=== PATIENT | female | born 1940 | race Caucasian/White ===

== ENCOUNTER 2016-09-30 09:59 | Day surgery (SDC) | payer MEDICARE, OTHER ==
[~2016-09-30 09:59] MED LIST: ACET325T9 PO; ALBU0.63 NEB; ALEN70TA3 PO; ASCO500T2 PO; AZEL137S3 NS; BUPIVACAINE MPF 0.5% 30 ML VIAL. ONE; CALC1TAB70 PO; CELE200C PO; CETI10TA22 PO; CLINDAMYCIN 600MG PREMIX 50 ML IV ONE; CYCL1DRO EACHEYE; DEXAMETHASONE SOD PHOS 4 MG/ML VIAL ONE; DEXL60CA2 PO; DICL100G18 TP; DOCU-109 PO; FENT1PAT13 TP; FLUT16SP NS; FOLI1TAB16 PO; GABA-586 PO; GABA600T2 PO; GLUC1TAB26 PO; HYDR10TA2 PO; HYDROmorphone 2 MG/ML VIAL IV PRN; IRON1CAP10 PO; IV RINGERS,LACTATED 1000ML 1,000 ML IV SCH; LACT1CAP6 PO; LIDOCAINE 1% 1 ML SYRINGE. ID PRN; LIDOCAINE 1% 20 ML VIAL. ONE; LOPE2TAB27 PO; LORA10TA68 PO; LOSA50TA6 PO; MAGN400C PO; MELA3TAB2 PO; MORPHINE SULFATE 2 MG/ML DISP.SYRIN. IV PRN; MULT-208 PO; OMEP40CA5 PO; ONDA4TAB7 PO; ONDANSETRON PF 4 MG/2 ML VIAL. IV PRN; OXYB5TAB7 PO; OXYC-323 PO; OXYC1TAB7 PO; POLY17PO29 PO; PROAIR HFA8.5 GM IH; PROCHLORPERAZINE 10 MG/2 ML VIAL. IV PRN; PYRI100T PO; RANI150T6 PO; SYSTANE 0.6% EACHEYE; TOLT4CAP PO; VALS80TA3 PO; VITA1TAB3 PO; VITA400C36 PO; [UNRECOGNIZED DRUG - CODE] PO; fentaNYL PF VIAL 100 MCG/2 ML VIAL IV PRN
[2016-09-30 10:46] LABS: HEMATOCRIT 28.5 % (36.0-47.0); HEMOGLOBIN 9.8 g/dL (12.0-15.5); RED BLOOD COUNT 3.12 x10^6/uL (3.50-5.40); RED CELL DISTRIBUTION WIDTH 12.9 % (11.5-14.5); WHITE BLOOD COUNT 4.2 x10^3/uL (4.0-11.0)
[2016-09-30 11:08] LABS: CALCIUM 8.8 mg/dL (8.5-10.1); CREATININE 0.8 mg/dL (0.6-1.0); GFR 69.9; POTASSIUM 4.1 mmol/L (3.5-5.1)
[2016-09-30] MEDS ORDERED: LIDOCAINE 2% PF Vial for OR 5 ML VIAL. ONE (11:14)
[2016-09-30] MEDS ORDERED: fentaNYL PF VIAL 100 MCG/2 ML VIAL ONE (11:14)
[2016-09-30] MEDS ORDERED: PROPOFOL 20 ML IV ONE (11:14)
--- NOTE | 2016-09-30 12:41 | PDOC4 ---
OPERATIVE NOTE: Surgeon: Vilma Pre op DX: Hammer toe right 2nd toe Post op DX same Procedure: Amputation of 2nd toe right foot Anesthesia: MAC with local Hemostasis: Esmark bandage x 15 minutes EBL 1mL Materials: 4-0 nylon Specimen to pathology: 2nd toe right foot Intraoperative findings: no signs of infection. Patient tolerated anesthesia and procedure well transferred to PACU with VSS and VSI to right foot TATIANA WILLOUGHBY DPM Sep 30, 2016 12:41
[2016-09-30 13:30] VITALS: BP 127/48
[2016-09-30] MEDS ORDERED: HYDROcodone/APAP 5/325MG 1 TAB TABLET PO PRN (13:30)
--- NOTE | 2016-09-30 18:17 | RAD ---
Right foot, 3 views, 09/30/2016: History: Postop amputation There is absence of the second toe on a postsurgical basis. There is patchy bony demineralization. No fracture or destructive bony lesion is seen. There are mild scattered degenerative changes. There is no evidence of a retained surgical instrument, needle or radiopaque sponge.
--- NOTE | 2016-09-30 18:57 | OP ---
DATE OF SURGERY: 09/30/2016 PREOPERATIVE DIAGNOSIS: Painful hammer toe, right foot with crossover. POSTOPERATIVE DIAGNOSIS: Painful hammer toe, right foot with crossover. PROCEDURE: Amputation of second toe, right foot at the level of the MPJ. SURGEON: Millie Esparza DPM ANESTHESIA: MAC with local. HEMOSTASIS: Used an Esmarch bandage to the right ankle. INDICATIONS: The patient is a 76-year-old female who complains of pain to second toe in shoe gear, second toe also rubs against the third toe causing irritation, and has difficulty in shoes due to rubbing. She has tried conservative treatment of accommodative padding and shoe gear accommodations as well as ice and NSAIDs without any relief. Discussed treatment options to include forefoot reconstructive surgery with arthrodesis of all toes versus an isolated second toe amputation. The patient wished to proceed with isolated second toe amputation. Discussed possible complications to include delayed healing, nonhealing, need for further surgery. The patient also had transfer lesions and continued pain, numbness, burning, tingling, phantom pain, DVT, pulmonary embolism. DESCRIPTION OF PROCEDURE: The patient was transported to the operating room via a cart and placed on the operating room table in supine position. She was given IV clindamycin, and IV sedation was administered per anesthesia, and a second digit block was administered to the right second toe consisting of 1:1 mixture of 1% lidocaine plain and 0.5% Marcaine plain. A well-padded tourniquet was placed over the right ankle, and the right foot was then prepped and draped in the usual aseptic manner. Esmarch bandage was used to exsanguinate the right foot and noted that the tourniquet was not working. Thus, Esmarch bandage was kept on for hemostasis. Attention was directed to the right second toe where tennis racquet incision was made at the level of the second MPJ. The second toe was disarticulated at the metatarsophalangeal joint, and small vessels were cauterized. The second toe was amputated in toto and sent to pathology. There were no signs of infection. The wound was then copiously irrigated with sterile saline and the skin edges were reapproximated with 4-0 nylon. A postop bandage was applied with Betadine ointment, Adaptic gauze, 4 x 4, Kerlix bandage roll, and an Koko bandage. The patient tolerated both anesthesia and procedure well, and postop instructions are in the chart. MILLIE ESPARZA DPM DR: Shilpi JOB#: [id number] / [id number]
== END 2016-09-30 14:18 | disposition home or self-care (01) ==
LOC: SURG 09:59
PROVIDERS: ATTEND Podiatrist Foot & Ankle Surgery
DX: M20.41 Other hammer toe(s) (acquired), right foot (principal); Z86.69 Personal history of other diseases of the nervous system and sense organs; I11.0 Hypertensive heart disease with heart failure; I50.9 Heart failure, unspecified; M19.90 Unspecified osteoarthritis, unspecified site; F41.9 Anxiety disorder, unspecified; F32.9 Major depressive disorder, single episode, unspecified; F17.200 Nicotine dependence, unspecified, uncomplicated; E03.9 Hypothyroidism, unspecified; Z90.49 Acquired absence of other specified parts of digestive tract; Z90.710 Acquired absence of both cervix and uterus; Z87.440 Personal history of urinary (tract) infections; Z87.39 Personal history of other diseases of the musculoskeletal system and connective tissue; Z88.1 Allergy status to other antibiotic agents; Z91.011 Allergy to milk products; Z91.013 Allergy to seafood; Z91.048 Other nonmedicinal substance allergy status
CPT/HCPCS: 28820; 36415; 73630; 80048; 85027; C1769; J1100; J2001; J2704; J3010; J3490